=== PATIENT | male | born 2000 | race Caucasian/White ===

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

== ENCOUNTER 2019-06-26 12:44 | Emergency (ER) | payer MEDICAID ==
[~2019-06-26] VITALS: Ht 188 cm; Wt 77.1 kg
[2019-06-26 12:45] VITALS: BP_SYST 151
--- NOTE | 2019-06-26 12:45 | NUR ---
Patient triaged and placed in waiting room. VSS and patient appears in no acute distress at this time. Accompanied by MOTHER, awaiting available bed, and MD notified of need for MSE.
--- NOTE | 2019-06-26 13:27 | NUR ---
BROUGHT BACK TO BED #3 AND REPORT GIVEN TO AVIVA
--- NOTE | 2019-06-26 13:30 | NUR ---
Pt c/o cough x4 days, smokes weed, vapes, and cigarettes. Pt has cough clear lungs, AO4, cooperative with staff
--- NOTE | 2019-06-26 13:36 | NUR ---
ER Dr. Sue at bedside examining patient.
--- NOTE | 2019-06-26 14:00 | NUR ---
Patient given written and verbal discharge instructions and verbalizes understanding. ER MD discussed with patient the results and treatment provided. Patient in stable condition. Rx of tessalon and albuterol given. Patient educated on pain management and to follow up with PMD. Pain Scale 0/10. Opportunity for questions provided and answered. Medication side effect fact sheet provided.
[2019-06-26 14:01] VITALS: BP_SYST 151
== END 2019-06-26 14:00 | disposition home or self-care (01) ==
LOC: SED 12:44
DX: J06.9 Acute upper respiratory infection, unspecified (principal); M54.2 Cervicalgia; R07.89 Other chest pain; R51 Headache; F90.9 Attention-deficit hyperactivity disorder, unspecified type
CPT/HCPCS: 71046-TC; 99283

== ENCOUNTER 2020-04-03 12:42 | Emergency (ER) | payer MEDICAID ==
[~2020-04-03] VITALS: Ht 188 cm; Wt 83.9 kg
[2020-04-03 12:44] VITALS: BP_SYST 135
--- NOTE | 2020-04-03 12:47 | NUR ---
Patient arrived in the ED c/o tailbone pain for the last 3 days s/p fall. Denied any chest pain or shortness of breath. Denied any fevers, chills, nausea or vomiting. Patient is alert and oriented x4, respirations even and unlabored, speaking in full sentences, and ambulating with a steady gait. VSS, pain level 6/10. Informed of the approximate wait time. Instructed to notify ED staff for any changes in condition or worsening of symptoms while waiting to be seen by an ED provider. Patient verbalized understanding.
--- NOTE | 2020-04-03 12:47 | NUR ---
Patient to ER bed 02 to gown for evaluation. Side rails up.
--- NOTE | 2020-04-03 12:48 | NUR ---
ER Dr. Mackenzie Mendez at bedside examining patient.
--- NOTE | 2020-04-03 13:02 | NUR ---
Patient is taken to Radiology as ordered by Dr. Mackenzie Mendez, in stable condition.
--- NOTE | 2020-04-03 13:11 | NUR ---
Patient is back from Radiology, in stable condition.
--- NOTE | 2020-04-03 14:43 | NUR ---
Patient given written and verbal discharge instructions and verbalizes understanding. ER MD discussed with patient the results and treatment provided. Patient in stable condition. ID arm band removed. Rx of [place], Amoxicillin, and Motrin given. Patient educated on pain management and to follow up with PMD. Pain Scale 0/10. Opportunity for questions provided and answered. Medication side effect fact sheet provided.
[2020-04-03 14:45] VITALS: BP_SYST 135
== END 2020-04-03 14:43 | disposition home or self-care (01) ==
LOC: SED 12:42
DX: S30.0XXA Contusion of lower back and pelvis, initial encounter (principal); J03.90 Acute tonsillitis, unspecified
CPT/HCPCS: 72220-TC; 99283

== ENCOUNTER 2021-05-01 17:49 | Emergency (ER) | payer MEDICAID, SELFPAY ==
[~2021-05-01] VITALS: Ht 188 cm; Wt 88.5 kg
[2021-05-01 17:55] VITALS: BP_SYST 141
[2021-05-01 19:55] VITALS: BP_SYST 135
== END 2021-05-01 19:55 | disposition home or self-care (01) ==
LOC: SED 17:49
DX: R05.9 Cough, unspecified (principal); R09.81 Nasal congestion; F17.210 Nicotine dependence, cigarettes, uncomplicated; F12.90 Cannabis use, unspecified, uncomplicated; Z71.6 Tobacco abuse counseling; Z79.899 Other long term (current) drug therapy; Z20.822 Contact with and (suspected) exposure to COVID-19
CPT/HCPCS: 36415; 99283